=== PATIENT | female | born 1980 | race Two or more races ===

== ENCOUNTER 2017-10-14 09:27 | Emergency (ER) | payer SELFPAY ==
[2017-10-14 10:00] LABS: ADD MAN DIFF? NO
[2017-10-14 10:02] LABS: BASO # 0.1 x10^3/uL (0.0-0.2); BASO % 1 % (0-3); EOS # 0.5 x10^3/uL (0.0-0.7); EOS % 5 % (0-3); HEMATOCRIT 39.2 % (36.0-47.0); HEMOGLOBIN 13.7 g/dL (12.0-15.5); LYMPH # 1.9 x10^3/uL (1.0-4.8); LYMPH % 20 % (24-48); MEAN CORPUSCULAR HEMOGLOBIN 30 pg (25-35); MEAN CORPUSCULAR HGB CONC 35 g/dL (31-37); MEAN CORPUSCULAR VOLUME 85 fL (79-100); MONO # 0.6 x10^3/uL (0.0-1.1); MONO % 6 % (0-9); NEUT # 6.5 x10^3uL (1.8-7.7); NEUT % 68 % (31-73); PLATELET COUNT 342 x10^3/uL (140-400); RED BLOOD COUNT 4.61 x10^6/uL (3.50-5.40); RED CELL DISTRIBUTION WIDTH 13.7 % (11.5-14.5); WHITE BLOOD COUNT 9.5 x10^3/uL (4.0-11.0)
[2017-10-14] MEDS: KETOROLAC 30 MG/ML INJ. IV (10:10)
[2017-10-14 10:18] LABS: ANION GAP 11 (6-14); BLOOD UREA NITROGEN 7 mg/dL (7-20); BUN/CREATININE RATIO 12 (6-20); CALCIUM 8.8 mg/dL (8.5-10.1); CARBON DIOXIDE 24 mmol/L (21-32); CHLORIDE 104 mmol/L (98-107); CREATININE 0.6 mg/dL (0.6-1.0); GFR 111.9; GLUCOSE 121 mg/dL (70-99); POTASSIUM 4.3 mmol/L (3.5-5.1); SODIUM 139 mmol/L (136-145)
[2017-10-14 10:21] LABS: ALBUMIN 3.8 g/dL (3.4-5.0); ALK PHOS 138 U/L (46-116); ALT (SGPT) 60 U/L (14-59); AST (SGOT) 35 U/L (15-37); LIPASE 75 U/L (73-393); TOTAL BILIRUBIN 0.5 mg/dL (0.2-1.0); TOTAL PROTEIN 7.6 g/dL (6.4-8.2)
[2017-10-14 10:22] LABS: TROPONINI < 0.017 ng/mL (0.000-0.055)
[2017-10-14 10:23] LABS: BILIRUBIN,URINE NEGATIVE (NEG); CLARITY,URINE CLOUDY; COLOR,URINE RED; GLUCOSE,URINE NEGATIVE (NEG); NITRITE,URINE NEGATIVE (NEG)
[2017-10-14 10:33] LABS: RBC,URINE TNTC /HPF (0-2)
[2017-10-14 10:34] LABS: BACTERIA,URINE FEW /HPF (0-FEW)
== END 2017-10-14 12:33 | disposition home or self-care (01) ==
LOC: ER 09:27
DX: R07.2 Precordial pain (principal); R94.5 Abnormal results of liver function studies
CPT/HCPCS: 36415; 71045; 76705; 80053; 81001; 83690; 83735; 84484; 85025; 93005; 96374; 99285-25; J1885

== ENCOUNTER 2018-10-06 01:16 | Emergency (ER) | payer SELFPAY ==
[~2018-10-06] VITALS: Ht 160 cm; Wt 86.2 kg
[~2018-10-06 01:16] MED LIST: NAPR-683 PO
[2018-10-06] MEDS ORDERED: KETOROLAC 15 MG/ML VIAL. IV ONE (02:00)
[2018-10-06] MEDS ORDERED: IV NORMAL SALINE 1000ML BAG 1,000 ML IV ONE (02:00)
[2018-10-06 02:01] LABS: BASO # 0.1 x10^3/uL (0.0-0.2); BASO % 1 % (0-3); EOS # 0.5 x10^3/uL (0.0-0.7); EOS % 5 % (0-3); HEMOGLOBIN 12.7 g/dL (12.0-15.5); LYMPH # 2.7 x10^3/uL (1.0-4.8); LYMPH % 27 % (24-48); MEAN CORPUSCULAR HEMOGLOBIN 29 pg (25-35); MEAN CORPUSCULAR HGB CONC 34 g/dL (31-37); MEAN CORPUSCULAR VOLUME 86 fL (79-100); MONO # 0.8 x10^3/uL (0.0-1.1); MONO % 8 % (0-9); NEUT # 6.1 x10^3uL (1.8-7.7); NEUT % 60 % (31-73); PLATELET COUNT 364 x10^3/uL (140-400); RED BLOOD COUNT 4.43 x10^6/uL (3.50-5.40); RED CELL DISTRIBUTION WIDTH 13.6 % (11.5-14.5); WHITE BLOOD COUNT 10.2 x10^3/uL (4.0-11.0)
[2018-10-06 02:19] LABS: CALCIUM 9.2 mg/dL (8.5-10.1); CREATININE 0.6 mg/dL (0.6-1.0); GFR 111.3; POTASSIUM 3.9 mmol/L (3.5-5.1)
[2018-10-06 02:21] VITALS: BP 149/73
[2018-10-06 02:24] LABS: ALBUMIN 3.6 g/dL (3.4-5.0); ALBUMIN/GLOBULIN RATIO 0.9 (1.0-1.7); MAGNESIUM 1.9 mg/dL (1.8-2.4); TOTAL BILIRUBIN 0.3 mg/dL (0.2-1.0); TOTAL PROTEIN 7.5 g/dL (6.4-8.2)
[2018-10-06] MEDS ORDERED: NAPR375T5 PO (03:01)
[2018-10-06] MEDS ORDERED: ORPH100T PO (03:01)
--- NOTE | 2018-10-06 03:01 | PHYS DOC ---
Past Medical History Past Medical History: Hypothyroid Past Surgical History: No Surgical History Additional Information: Nonsmoker Alcohol Use: None Drug Use: None Adult General Chief Complaint Chief Complaint: CHEST PAIN HPI HPI 38-year-old female presents with left-sided chest wall pain and posterior shoulder pain 1 month. Patient reports it is worse with any range of motion about her shoulder. Denies known trauma. Denies family swelling or tenderness. Denies fever or chills. Denies erythema. Patient denies . Reports she is currently on her menstrual period. Review of Systems Review of Systems Constitutional: Denies fever or chills [] Eyes: Denies change in visual acuity, redness, or eye pain [] HENT: Denies nasal congestion or sore throat [] Respiratory: Denies cough or shortness of breath [] Cardiovascular: Reports chest wall pain, denies palpitations GI: Denies abdominal pain, nausea, vomiting, or diarrhea [] : Denies dysuria or hematuria [] Musculoskeletal: Denies back pain or joint pain [] Integument: Denies rash or skin lesions [] Neurologic: Denies headache, focal weakness or sensory changes [] Complete systems were reviewed and found to be within normal limits, except as documented in this note. Current Medications Current Medications Current Medications Medications (Trade) Dose Ordered Sig/Sarmad Start Time Stop Time Status Last Admin Dose Admin Ketorolac Tromethamine (Toradol 15mg Vial) 15 mg 1X ONCE 10/06/18 02:00 10/06/18 02:01 DC 10/06/18 02:23 15 MG Sodium Chloride 1,000 ml @ 1,000 mls/hr 1X ONCE 10/06/18 02:00 10/06/18 02:59 DC 10/06/18 02:22 1,000 MLS/HR Allergies Allergies Allergies Coded Allergies Type Severity Reaction Last Updated Verified No Known Drug Allergies 08/31/13 No Physical Exam Physical Exam Constitutional: Well developed, well nourished, no acute distress, non-toxic appearance. [] HENT: Normocephalic, atraumatic Eyes: Conjunctiva normal, no discharge. [] Neck: Normal range of motion, no tenderness, supple, no stridor. [] Cardiovascular: Heart rate normal with regular rhythm Lungs & Thorax: Bilateral breath sounds clear to auscultation; left anterior chest wall pain tender to palpation Abdomen: Soft, no tenderness Skin: Warm, dry, no erythema, no rash. [] Extremities: Left shoulder with pain on ROM, nontender to palpation, ROM intact, no edema. [] Neurologic: Alert and oriented X 3, no focal deficits noted. [] Psychologic: Affect normal, judgement normal, mood normal. [] Current Patient Data Vital Signs Vital Signs Date Time Temp Pulse Resp B/P (MAP) Pulse Ox O2 Delivery O2 Flow Rate FiO2 10/06/18 02:21 90 149/73 (98) 98 10/06/18 01:20 98.2 18 Room Air 98.2 Lab Values Laboratory Tests Test 10/06/18 01:53 White Blood Count 10.2 x10^3/uL (4.0-11.0) Red Blood Count 4.43 x10^6/uL (3.50-5.40) Hemoglobin 12.7 g/dL (12.0-15.5) Hematocrit 38.0 % (36.0-47.0) Mean Corpuscular Volume 86 fL (79-100) Mean Corpuscular Hemoglobin 29 pg (25-35) Mean Corpuscular Hemoglobin Concent 34 g/dL (31-37) Red Cell Distribution Width 13.6 % (11.5-14.5) Platelet Count 364 x10^3/uL (140-400) Neutrophils (%) (Auto) 60 % (31-73) Lymphocytes (%) (Auto) 27 % (24-48) Monocytes (%) (Auto) 8 % (0-9) Eosinophils (%) (Auto) 5 % (0-3) H Basophils (%) (Auto) 1 % (0-3) Neutrophils # (Auto) 6.1 x10^3uL (1.8-7.7) Lymphocytes # (Auto) 2.7 x10^3/uL (1.0-4.8) Monocytes # (Auto) 0.8 x10^3/uL (0.0-1.1) Eosinophils # (Auto) 0.5 x10^3/uL (0.0-0.7) Basophils # (Auto) 0.1 x10^3/uL (0.0-0.2) Sodium Level 139 mmol/L (136-145) Potassium Level 3.9 mmol/L (3.5-5.1) Chloride Level 104 mmol/L (98-107) Carbon Dioxide Level 24 mmol/L (21-32) Anion Gap 11 (6-14) Blood Urea Nitrogen 12 mg/dL (7-20) Creatinine 0.6 mg/dL (0.6-1.0) Estimated GFR (Cockcroft-Gault) 111.3 BUN/Creatinine Ratio 20 (6-20) Glucose Level 131 mg/dL (70-99) H Calcium Level 9.2 mg/dL (8.5-10.1) Magnesium Level 1.9 mg/dL (1.8-2.4) Total Bilirubin 0.3 mg/dL (0.2-1.0) Aspartate Amino Transferase (AST) 40 U/L (15-37) H Alanine Aminotransferase (ALT) 68 U/L (14-59) H Alkaline Phosphatase 181 U/L (46-116) H Troponin I Quantitative < 0.017 ng/mL (0.000-0.055) SK-Nvh-A-Type Natriuretic Peptide 5 pg/mL (0-124) Total Protein 7.5 g/dL (6.4-8.2) Albumin 3.6 g/dL (3.4-5.0) Albumin/Globulin Ratio 0.9 (1.0-1.7) L Lipase 107 U/L (73-393) Laboratory Tests 10/06/18 01:53 Laboratory Tests 10/06/18 01:53 EKG EKG @0125 NSR at 91bpm, NO ST elevation, Q wave III and aVF. Radiology/Procedures Radiology/Procedures 2 view CXR: (preliminary interpretation by ED physician): NO acute process Course & Med Decision Making Course & Med Decision Making Pertinent Labs and Imaging studies reviewed. (See chart for details) Patient presents with atypical chest pain which is worse with palpation and upon range of motion about left shoulder. Denies known trauma. Pain has been ongoing for the past 1 month. Screening EKG obtained without acute process. Labs obtained and posted to chart. Troponin within normal limits. Patient without cardiac risk factors. Heart score 0. PERC rule satisfied. Chest x-ray without acute process. Symptomatic treatment provided with interval improvement of symptoms. Patient stable for discharge with outpatient follow-up with PCP. Dis cussed findings and plan with patient and family, who acknowledge understanding and agreement. Dragon Disclaimer Dragon Disclaimer This electronic medical record was generated, in whole or in part, using a voice recognition dictation system. Departure Departure Impression: Primary Impression: Musculoskeletal chest pain Disposition: HOME, SELF-CARE Condition: STABLE Referrals: NO PCP (PCP) Patient Instructions: Chest Wall Pain, Yosc-eo-Wfbo Scripts Orphenadrine Citrate (ORPHENADRINE CITRATE) 100 Mg Tablet.er 1 TAB PO BID PRN for MUSCLE PAIN, #14 TAB Prov: ANTIONE SIN DO 10/06/18 Naproxen (NAPROXEN) 375 Mg Tablet.dr 375 MG PO TID PRN PRN for PAIN, #30 TAB.SR Prov: ANTIONE SIN DO 10/06/18 The HEART Score for CP Pts HEART Score for Chest Pain: HEART Score for Chest Pain Response (Comments) Value History Slighlty/Non-Suspicious 0 ECG Normal 0 Age < 45 0 Risk Factors No Risk Factors 0 Troponin < Normal Limit 0 Total 0 Risk Factors: Risk Factors: DM, Current or recent (<one month) smoker, HTN, HLP, family history of CAD, obesity. Risk Scores: Score 0 - 3: 2.5% MACE over next 6 weeks - Discharge Home Score 4 - 6: 20.3% MACE over next 6 weeks - Admit for Clinical Observation Score 7 - 10: 72.7% MACE over next 6 weeks - Early Invasive Strategies PERC Rule for PE PERC Rule for PE PERC Rule for PE Response (Comments) Value Age > 50: No 0 HR > 100: No 0 Sa02 on room air <95%: No 0 Unilateral leg swelling: No 0 Hemoptysis: No 0 Recent surgery or trauma: No 0 Prior PE or DVT: No 0 Hormone use: No 0 Total 0 ANTIONE SIN DO October 06, 2018 03:01
--- NOTE | 2018-10-06 06:56 | EKG ---
[facility] [address] [place] [address] Test Date: 2018-10-06 Test Time: 01:25:04 Pat Name: YOBANI MCADAMS Department: Room: Gender: F Manager Client: SARAH : 1980 Requested By: ANTIONE SIN Order Number: [id number] Reading MD: Uri Dow MD Measurements Intervals [place] Rate: 91 P: 51 CT: 138 QRS: 26 QRSD: 86 T: 17 QT: 368 QTc: 460 Interpretive Statements SINUS RHYTHM Electronically Signed On 11-01-2018 9:27:09 CDT by Uri Dow MD
--- NOTE | 2018-10-06 08:14 | RAD ---
Chest, 2 views, 10/06/2018: HISTORY: Chest wall pain Comparison is made to a study from 10/14/2017. The heart size is normal. The lungs are clear. There is no evidence of pleural fluid. IMPRESSION: No acute cardiopulmonary abnormality is detected. Electronically signed by: George Dumont MD (10/06/2018 8:12 AM) [facility]
== END 2018-10-06 03:09 | disposition home or self-care (01) ==
LOC: ER 01:16
DX: R07.89 Other chest pain (principal); M25.512 Pain in left shoulder; E03.9 Hypothyroidism, unspecified
CPT/HCPCS: 36415; 71046; 80053; 83690; 83735; 83880; 84484; 85025; 93005; 96374; 99285; J1885; J7030

== ENCOUNTER 2019-10-25 15:54 | Emergency (ER) | payer SELFPAY ==
[~2019-10-25] VITALS: Ht 160 cm; Wt 86.0 kg
[~2019-10-25 15:54] MED LIST changes: +NAPR375T5 PO; +ORPH100T PO
[2019-10-25] MEDS ORDERED: ONDANSETRON ODT 4 MG TAB.RAPDIS. PO ONE (16:15)
[2019-10-25] MEDS ORDERED: NEOMY/BACITR/POLYMYXIN OINT PACKET. TP ONE (16:15)
[2019-10-25] MEDS ORDERED: HYDROcodone/APAP 5/325MG 1 TAB TABLET PO ONE (16:15)
--- NOTE | 2019-10-25 16:25 | PHYS DOC ---
Past Medical History Past Medical History: Hypothyroid Past Surgical History: No Surgical History Smoking Status: Never Smoker Alcohol Use: None Drug Use: None General Adult EDM: Chief Complaint: MECHANICAL FALL HPI: HPI: Patient is a 39 year old Female who presents with right prior before patient came she states that she was doing laundry and was going down some cement stairs into her basement when they were wet and she slipped and fell down 5-6 stairs. Patient rates her pain about 7 out of 10. Patient has an abrasion to the left cheekbone that has 1+ swelling but no drainage, left elbow with 1+ swelling and abrasion but no drainage, left top of the shoulder again with abrasion and no drainage and some redness and 1+ swelling. Patient has abrasions to her right buttock with no drainage and no swelling, right knee abrasion with no drainage but 1+ swelling, right top of the foot with 1+ swelling and no drainage. Patient denies any chest pain, shortness of breath, LOC, blood thinners, abdominal pain, back pain, neck pain, nausea, vomiting, dizziness, vision c hanges, numbness or tingling, incontinence. Review of Systems: Review of Systems: Musculoskeletal: Denies back pain. Left elbow, left shoulder, right knee, right foot joint pain. [] Integument: Denies rash. Abrasion to left cheekbone, left elbow, left shoulder, right buttock, right knee, right foot [] Neurologic: headache, denies focal weakness or sensory changes. [] Heart Score: Risk Factors: Risk Factors: DM, Current or recent (<one month) smoker, HTN, HLP, family history of CAD, obesity. Risk Scores: Score 0 - 3: 2.5% MACE over next 6 weeks - Discharge Home Score 4 - 6: 20.3% MACE over next 6 weeks - Admit for Clinical Observation Score 7 - 10: 72.7% MACE over next 6 weeks - Early Invasive Strategies Allergies: Allergies: Allergies Coded Allergies Type Severity Reaction Last Updated Verified No Known Drug Allergies 10/25/19 No Physical Exam: PE: Constitutional: Well developed, well nourished, no acute distress, non-toxic appearance. [] HENT: Normocephalic, atraumatic, bilateral external ears normal, oropharynx moist, no oral exudates, nose normal. [] Eyes: PERRLA, EOMI, conjunctiva normal, no discharge. [] Neck: Normal range of motion, no tenderness, supple, no stridor. [] Cardiovascular:Heart rate regular rhythm, no murmur [] Lungs & Thorax: Bilateral breath sounds clear to auscultation [] Abdomen: Bowel sounds normal, soft, no tenderness, no masses, no pulsatile masses. [] Skin: Warm, dry, no erythema, no rash. Abrasion to left cheekbone, elbow, s houlder, right buttock, right knee, right foot. [] Back: No tenderness, no CVA tenderness. [] Extremities: Right foot, right knee, left shoulder, left elbow tenderness, no cyanosis, no clubbing, ROM intact, no edema. [] Neurologic: Alert and oriented X 3, normal motor function, normal sensory function, no focal deficits noted. [] Psychologic: Affect normal, judgement normal, mood normal. [] Current Patient Data: Labs: Laboratory Tests Test 10/25/19 16:08 POC Urine HCG, Qualitative Hcg negative (Negative) EKG: EKG: [] Radiology/Procedures: Radiology/Procedures: [] Impression: [facility] [address] [place], [place] [id number] IMAGING REPORT Signed PATIENT: DAI MACIASCOUNT: [id number] : 1980 LOCATION: ER AGE: 39 SEX: F EXAM STATUS: REG ER ORD. PHYSICIAN: RUBEN PADILLA APRN REASON: FALL, HEAD AND NECK INJURY PROCEDURE: CT HEAD AND CERVICAL SPINE WO Examination: CT MAXILLOFACIAL WO CONTRAST, CT HEAD AND CERVICAL SPINE WO History: Fall, head and neck injury, pain Comparison/Correlation: None Findings: Axial images of the head, maxillofacial structures, and cervical spine were obtained. Sagittal and coronal reformatted images were provided. The globes and optic nerves are unremarkable. Slight edema and involving the left temporal scalp noted. No intracranial hemorrhage, midline shift, or mass effect. Ventricles are normal size. Alignment is normal. Vertebral body heights and disc spaces are clear. No displaced fracture or bone destruction. No significant degenerative change. Neural foramina are patent. Right maxillary sinus mucous retention cyst is present is present. Minimal mucosal thickening of the frontal sinus. Impression: No intracranial hemorrhage or depressed fracture. Normal cervical spine alignment. PQRS Compliance Statement: One or more of the following individualized dose reduction techniques were utilized for this examination: 1. Automated exposure control 2. Adjustment of the mA and/or kV according to patient size 3. Use of iterative reconstruction technique Electronically signed by: Pravin Rubin MD (10/25/2019 4:48 PM) [id number] DICTATED and SIGNED BY: RPAVIN RUBIN MD DATE: 10/25/19 1648 [facility] [address] [place] [address] IMAGING REPORT Signed PATIENT: JENNIFER MACIASUNT: [id number] : 1980 LOCATION: ER AGE: 39 SEX: F EXAM STATUS: REG ER ORD. PHYSICIAN: RUBEN PADILLA APRN REASON: FALL, PAIN PROCEDURE: ELBOW LEFT 3V EXAM: AP, lateral and radial head views of the left elbow DATE: 10/25/2019 4:14 PM INDICATION: Fall, left elbow pain COMPARISON: No Prior FINDINGS: No elbow joint effusion. No acute fracture or dislocation. Mild soft tissue swelling overlying the olecranon. IMPRESSION: 1. No acute fracture or dislocation. 2. Mild soft tissue swelling overlying the olecranon. Electronically signed by: Tye Montenegro MD (10/25/2019 5:13 PM) [id number] DICTATED and SIGNED BY: TYE MONTENEGRO MD DATE: 10/25/19 1713 [facility] [address] [place] [address] IMAGING REPORT Signed PATIENT: DAI MACIASCOUNT: [id number] : 1980 LOCATION: ER AGE: 39 SEX: F EXAM STATUS: REG ER ORD. PHYSICIAN: RUBEN PADILLA APRN REASON: FALL, PAIN PROCEDURE: FOOT RIGHT 3V FOOT RIGHT 3V DATE: 10/25/2019 4:14 PM INDICATION: Fall, pain COMPARISON: None. FINDINGS: Bones: There is no evidence of acute fracture or dislocation. Small plantar calcaneal enthesophyte. Joints: The joint spaces are normal. Miscellaneous: None. IMPRESSION: No evidence of acute fracture. Electronically signed by: Akila Edwards MD (10/25/2019 5:20 PM) [id number] DICTATED and SIGNED BY: AKILA EDWARDS MD DATE: 10/25/19 [address] [id number] IMAGING REPORT Signed PATIENT: DAI MACIASCOUNT: [id number] : 1980 LOCATION: ER AGE: 39 SEX: F EXAM STATUS: REG ER ORD. PHYSICIAN: RUBEN PADILLA APRN REASON: FALL, PAIN PROCEDURE: KNEE RIGHT 4V KNEE RIGHT 4V DATE: 10/25/2019 4:14 PM INDICATION: Fall, pain COMPARISON: None. FINDINGS: Bones: There is no evidence of acute fracture or dislocation. Joints: The joint spaces are normal. There is no joint effusion. Miscellaneous: None. IMPRESSION: No evidence of acute fracture. Electronically signed by: Akila Edwards MD (10/25/2019 5:21 PM) [id number] DICTATED and SIGNED BY: AKILA EDWARDS MD DATE: 10/25/[address] [place], [place] [id number] IMAGING REPORT Signed PATIENT: DAI MACIASCOUNT: [id number] : 1980 LOCATION: ER AGE: 39 SEX: F EXAM STATUS: REG ER ORD. PHYSICIAN: RUBEN PADILLA APRN REASON: FALL, PAIN PROCEDURE: SHOULDER 2+V LEFT EXAM: 3 Views Left Shoulder DATE: 10/25/2019 4:14 PM INDICATION: Fall, left shoulder pain COMPARISON: No Prior FINDINGS: There is no evidence for acute fracture or dislocation. AC joint is congruent. Humeral head is not high riding. IMPRESSION: 1. No acute fracture or dislocation. Electronically signed by: Tye Montenegro MD (10/25/2019 5:12 PM) [id number] DICTATED and SIGNED BY: TYE MONTENEGRO MD DATE: 10/25/19 1712 Course & Med Decision Making: Course & Med Decision Making Pertinent Labs and Imaging studies reviewed. (See chart for details) Patient states she took no medications before coming. She states her last tetanus shot was in 2019. She has full range of motion of all joints and no deformity to any joints. No deformity to any extremity, no deformity to her face or skull. Radial pulses are strong and present. Pedal pulses are strong and present. Patient can wiggle her toes. Cap refill and bilateral hands and feet are less than 3 seconds. Lungs are clear to auscultation all lobes. No focal bony spinal tenderness. No focal weaknesses. Patient moves all extremities equally went with equal strengths. She is alert and oriented. Speaking in full sentences. Answers all questions appropriately. No missing teeth or damage to the mouth or tongue. Full range of motion of her neck and without tenderness or pain. Areas of abrasions are cleaned with chlorhexidine and saline and antibiotic ointment is placed. [] Dragon Disclaimer: Dragon Disclaimer: This electronic medical record was generated, in whole or in part, using a voice recognition dictation system. Departure Departure Impression: Primary Impression: Fall Qualified Codes: W19.XXXA - Unspecified fall, initial encounter Additional Impressions: Contusion Qualified Codes: S40.022A - Contusion of left upper arm, initial encounter Abrasion Disposition: HOME, SELF-CARE Condition: STABLE Referrals: NO PCP (PCP) Patient Instructions: Abrasion, Nujk-sm-Qqiy, Contusion, Laoe-ol-Emig, Fall Prevention and Home Safety Additional Instructions: Take medication with food and as prescribed. Do not drive or drink alcohol with this medication. Scripts Orphenadrine Citrate (ORPHENADRINE CITRATE) 100 Mg Tablet.er 1 TAB PO BID, #14 TAB Prov: RUBEN PADILLA COMMUNITY NUTRITION EDUCATOR 10/25/19 Hydrocodone/Apap 5-325 (NORCO 5-325 TABLET) 1 Each Tablet 1 TAB PO PRN Q6HRS PRN for PAIN, #10 TAB 0 Refills Prov: RUBEN PADILLA APRN 10/25/19 RUBEN PADILLA APRN October 25, 2019 16:25
[2019-10-25 16:31] LABS: BILIRUBIN,URINE SMALL (NEG); CLARITY,URINE CLEAR; COLOR,URINE AMBER; NITRITE,URINE NEGATIVE (NEG); PH,URINE 5.5 (<5.0-8.0); PROTEIN,URINE 100 mg/dL (NEG-TRACE)
--- NOTE | 2019-10-25 16:50 | RAD ---
Examination: CT MAXILLOFACIAL WO CONTRAST, CT HEAD AND CERVICAL SPINE WO History: Fall, head and neck injury, pain Comparison/Correlation: None Findings: Axial images of the head, maxillofacial structures, and cervical spine were obtained. Sagittal and coronal reformatted images were provided. The globes and optic nerves are unremarkable. Slight edema and involving the left temporal scalp noted. No intracranial hemorrhage, midline shift, or mass effect. Ventricles are normal size. Alignment is normal. Vertebral body heights and disc spaces are clear. No displaced fracture or bone destruction. No significant degenerative change. Neural foramina are patent. Right maxillary sinus mucous retention cyst is present is present. Minimal mucosal thickening of the frontal sinus. Impression: No intracranial hemorrhage or depressed fracture. Normal cervical spine alignment. PQRS Compliance Statement: One or more of the following individualized dose reduction techniques were utilized for this examination: 1. Automated exposure control 2. Adjustment of the mA and/or kV according to patient size 3. Use of iterative reconstruction technique Electronically signed by: Pravin George MD (10/25/2019 4:48 PM) [id number]
[2019-10-25 16:54] LABS: BACTERIA,URINE FEW /HPF (0-FEW); RBC,URINE 0 /HPF (0-2); SQUAMOUS EPITHELIAL CELL,UR MANY /LPF; WBC,URINE OCC /HPF (0-4)
--- NOTE | 2019-10-25 17:15 | RAD ---
EXAM: 3 Views Left Shoulder DATE: 10/25/2019 4:14 PM INDICATION: Fall, left shoulder pain COMPARISON: No Prior FINDINGS: There is no evidence for acute fracture or dislocation. AC joint is congruent. Humeral head is not high riding. IMPRESSION: 1. No acute fracture or dislocation. Electronically signed by: Tye Michel MD (10/25/2019 5:12 PM) [id number]
--- NOTE | 2019-10-25 17:17 | RAD ---
EXAM: AP, lateral and radial head views of the left elbow DATE: 10/25/2019 4:14 PM INDICATION: Fall, left elbow pain COMPARISON: No Prior FINDINGS: No elbow joint effusion. No acute fracture or dislocation. Mild soft tissue swelling overlying the olecranon. IMPRESSION: 1. No acute fracture or dislocation. 2. Mild soft tissue swelling overlying the olecranon. Electronically signed by: Tye Michel MD (10/25/2019 5:13 PM) [id number]
--- NOTE | 2019-10-25 17:23 | RAD ---
KNEE RIGHT 4V DATE: 10/25/2019 4:14 PM INDICATION: Fall, pain COMPARISON: None. FINDINGS: Bones: There is no evidence of acute fracture or dislocation. Joints: The joint spaces are normal. There is no joint effusion. Miscellaneous: None. IMPRESSION: No evidence of acute fracture. Electronically signed by: Dennis Edwards MD (10/25/2019 5:21 PM) [id number]
--- NOTE | 2019-10-25 17:23 | RAD ---
FOOT RIGHT 3V DATE: 10/25/2019 4:14 PM INDICATION: Fall, pain COMPARISON: None. FINDINGS: Bones: There is no evidence of acute fracture or dislocation. Small plantar calcaneal enthesophyte. Joints: The joint spaces are normal. Miscellaneous: None. IMPRESSION: No evidence of acute fracture. Electronically signed by: Dennis Edwards MD (10/25/2019 5:20 PM) [id number]
[2019-10-25 17:55] VITALS: BP 142/75
[2019-10-25] MEDS ORDERED: HYDR-3164 PO (18:00)
[2019-10-25] MEDS ORDERED: ORPH100T PO (18:00)
== END 2019-10-25 18:09 | disposition home or self-care (01) ==
LOC: ER 15:54
DX: S40.022A Contusion of left upper arm, initial encounter (principal); S00.81XA Abrasion of other part of head, initial encounter; S40.212A Abrasion of left shoulder, initial encounter; S50.312A Abrasion of left elbow, initial encounter; S30.810A Abrasion of lower back and pelvis, initial encounter; S90.811A Abrasion, right foot, initial encounter; S80.211A Abrasion, right knee, initial encounter; R51 Headache; E03.9 Hypothyroidism, unspecified; W10.8XXA Fall (on) (from) other stairs and steps, initial encounter; Y93.E2 Activity, laundry; Y92.89 Other specified places as the place of occurrence of the external cause; Y99.8 Other external cause status
CPT/HCPCS: 70450; 70486; 72125; 73030; 73080; 73564; 73630; 81001; 81025; 87086; 99285; Q0162